=== PATIENT | female | born 1990 | race Caucasian/White ===

== ENCOUNTER 2016-09-16 00:14 | Emergency (ER) | payer BC ==
[~2016-09-16] VITALS: Ht 165.1 cm; Wt 125.5 kg
[~2016-09-16 00:14] MED LIST: DIPROSONE 0.05%15 GM TP; FLAGYL500 MG PO; KEFLEX500 MG PO; NAPROSYN500 MG PO; ZOFRAN ODT4 MG PO
[2016-09-16 01:05] LABS: ADD MIUA? YES; BILIRUBIN NEGATIVE; BLOOD MODERATE; COLOR YELLOW ((YELLOW)); GLUCOSE (STRIP) NEGATIVE; KETONES NEGATIVE; LEUKOCYTES LARGE; NITRITE POSITIVE; PROTEIN (STRIP) 30; SPECIFIC GRAVITY 1.008 (1.000-1.030); UROBILINOGEN 0.2 MG/DL (0.2-1.0)
[2016-09-16 01:07] LABS: INFLUENZA A VIRAL ANTIGEN NEGATIVE; INFLUENZA B VIRAL ANTIGEN NEGATIVE
[2016-09-16 01:08] LABS: HEMATOCRIT 40.8 % (36.0-46.0); MCH 31.4 PG (29.0-34.0); MCHC 33.6 G/DL (30.0-36.0); MCV 93.6 FL (83-99); MEAN PLAT.VOLUME 8.5 uM^3 (9.5-12.4); PLATELET COUNT 443 K/uL (156-360); RBC DIS.WIDTH-CV 11.3 % (11.8-14.6); RBC DIS.WIDTH-SD 38.9 % (39-53); RED BLOOD COUNT 4.36 M/uL (3.80-5.20); WHITE BLOOD COUNT 13.6 K/uL (4.1-10.2)
[2016-09-16 01:17] LABS: CHLORIDE 103 mEq/L (99-109); POTASSIUM 3.5 mEq/L (3.7-5.4); SODIUM 137 mEq/L (136-147)
[2016-09-16 01:19] LABS: GLUCOSE 104 mg/dL (70-99)
[2016-09-16 01:20] LABS: BACTERIA RARE /HPF; EPITHELIAL CELLS RARE /HPF; MUCUS TRACE /LPF; RED BLOOD CELLS 30-40 /HPF (0-5); UCUL ADDED? YES; WHITE BLOOD CELLS TNTC /HPF (0-5)
[2016-09-16 01:21] LABS: ANION GAP 13 MEQ/L (2-14); TOTAL BILIRUBIN 0.5 mg/dL (0.0-1.0)
[2016-09-16 01:23] LABS: ALKALINE PHOSPHATASE 93 IU/L (3-129); GFR ESTIMATE (CALCULATED) > 59 mL/min/
[2016-09-16 01:24] LABS: UREA NITROGEN (BUN) 10 mg/dL (9-23)
[2016-09-16 01:32] LABS: QUANTITATIVE HCG 17.4 MIU/ML
[2016-09-16] MEDS ORDERED: KEFLEX500 MG PO (03:07)
[2016-09-16] MEDS ORDERED: MOTRIN800 MG PO (03:07)
[2016-09-16] MEDS ORDERED: PYRIDIUM200 MG PO (03:17)
[2016-09-16 03:42] VITALS: BP 140/88
[2016-09-19] MEDS ORDERED: SENOKOT,SENN1 TABLET PO (21:03)
== END 2016-09-16 03:43 | disposition home or self-care (01) ==
LOC: EME 00:14 → EXP 00:14
DX: O86.20 Urinary tract infection following delivery, unspecified (principal); O86.4 Pyrexia of unknown origin following delivery; G80.9 Cerebral palsy, unspecified
CPT/HCPCS: 80053; 81003; 83605; 84702; 85027; 87040; 87077; 87086; 87186; 87502; 87801; 99281; 99284; J0696; J1885; J7030; J7050

== ENCOUNTER 2016-09-18 01:00 | Emergency (ER) | payer BC ==
[~2016-09-18] VITALS: Ht 165.1 cm; Wt 122.2 kg
[~2016-09-18 01:00] MED LIST changes: +MOTRIN800 MG PO; +PYRIDIUM200 MG PO
[2016-09-18 02:43] LABS: EOSINOPHIL (%) 2.8 % (0-5); EOSINOPHIL COUNT 0.3 K/uL (0-0.3); HEMATOCRIT 33.4 % (36.0-46.0); IMMATURE GRANULOCYTE (%) 1.4 % (0.0-0.7); IMMATURE GRANULOCYTE COUNT 0.1 K/uL; INSTRUMENT ABS NEUTROPHIL CT 6.1 K/uL; LYMPHOCYTE COUNT 2.1 K/uL (1.0-2.8); MCH 31.4 PG (29.0-34.0); MCHC 33.8 G/DL (30.0-36.0); MCV 92.8 FL (83-99); MEAN PLAT.VOLUME 8.8 uM^3 (9.5-12.4); MONOCYTE (%) 9.5 % (3-12); MONOCYTE COUNT 0.9 K/uL (0-0.8); NEUTROPHIL (%) 63.8 % (45-76); NEUTROPHIL COUNT 6.1 K/uL (1.8-6.4); PLATELET COUNT 381 K/uL (156-360); RBC DIS.WIDTH-CV 11.2 % (11.8-14.6); RBC DIS.WIDTH-SD 38.3 % (39-53); WHITE BLOOD COUNT 9.5 K/uL (4.1-10.2)
[2016-09-18 02:48] LABS: CHLORIDE 109 mEq/L (99-109); POTASSIUM 3.5 mEq/L (3.7-5.4); SODIUM 140 mEq/L (136-147)
[2016-09-18 02:50] LABS: GLUCOSE 105 mg/dL (70-99)
[2016-09-18 02:52] LABS: ANION GAP 11 MEQ/L (2-14)
[2016-09-18 02:54] LABS: ALKALINE PHOSPHATASE 72 IU/L (3-129); GFR ESTIMATE (CALCULATED) > 59 mL/min/
[2016-09-18 02:55] LABS: TOTAL BILIRUBIN 0.3 mg/dL (0.0-1.0); UREA NITROGEN (BUN) 7 mg/dL (9-23)
[2016-09-18 03:18] LABS: ADD MIUA? YES; BILIRUBIN NEGATIVE; BLOOD LARGE; COLOR AMBER ((YELLOW)); GLUCOSE (STRIP) NEGATIVE; KETONES NEGATIVE; LEUKOCYTES LARGE; NITRITE NEGATIVE; PROTEIN (STRIP) NEGATIVE; SPECIFIC GRAVITY 1.009 (1.000-1.030); UROBILINOGEN 0.2 MG/DL (0.2-1.0)
[2016-09-18 03:33] LABS: BACTERIA RARE /HPF; EPITHELIAL CELLS RARE /HPF; MUCUS TRACE /LPF; RED BLOOD CELLS 40-50 /HPF (0-5); UCUL ADDED? YES; WHITE BLOOD CELLS TNTC /HPF (0-5)
[2016-09-18 04:49] VITALS: BP 134/84
[2016-09-19] MEDS ORDERED: SENOKOT,SENN1 TABLET PO (21:03)
== END 2016-09-18 05:19 | disposition home or self-care (01) ==
LOC: EME 01:00
PROVIDERS: Emergency Medicine
DX: O86.21 Infection of kidney following delivery (principal); N12 Tubulo-interstitial nephritis, not specified as acute or chronic; R78.81 Bacteremia; B96.89 Other specified bacterial agents as the cause of diseases classified elsewhere
CPT/HCPCS: 80053; 81003; 83605; 85025; 87040; 87086; 99281; 99284; J0696; J7050

== ENCOUNTER 2017-03-06 20:03 | Emergency (ER) | payer BC ==
[~2017-03-06] VITALS: Ht 162.6 cm; Wt 128.4 kg
[~2017-03-06 20:03] MED LIST changes: +SENOKOT,SENN1 TABLET PO
[2017-03-06 21:14] LABS: ADD MIUA? YES; BILIRUBIN NEGATIVE; BLOOD NEGATIVE; COLOR YELLOW ((YELLOW)); GLUCOSE (STRIP) NEGATIVE; KETONES NEGATIVE; LEUKOCYTES TRACE; NITRITE NEGATIVE; PROTEIN (STRIP) NEGATIVE; SPECIFIC GRAVITY 1.018 (1.000-1.030); UROBILINOGEN 0.2 MG/DL (0.2-1.0)
[2017-03-06 21:20] LABS: BACTERIA RARE /HPF; EPITHELIAL CELLS RARE /HPF; MUCUS TRACE /LPF; RED BLOOD CELLS 0-5 /HPF (0-5); UCUL ADDED? NO; WHITE BLOOD CELLS 0-5 /HPF (0-5)
[2017-03-06 21:26] LABS: HEMATOCRIT 42.9 % (36.0-46.0); MCH 28.9 PG (29.0-34.0); MCHC 33.3 G/DL (30.0-36.0); MCV 86.8 FL (83-99); MEAN PLAT.VOLUME 9.5 uM^3 (9.5-12.4); PLATELET COUNT 333 K/uL (156-360); RBC DIS.WIDTH-SD 38.4 % (39-53); RED BLOOD COUNT 4.94 M/uL (3.80-5.20)
[2017-03-06 21:38] LABS: CHLORIDE 108 mEq/L (99-109)
[2017-03-06 21:39] LABS: POTASSIUM 3.5 mEq/L (3.7-5.4); SODIUM 140 mEq/L (136-147)
[2017-03-06 21:41] LABS: GLUCOSE 95 mg/dL (70-99)
[2017-03-06 21:42] LABS: ANION GAP 8 MEQ/L (2-14)
[2017-03-06 21:43] LABS: TOTAL BILIRUBIN 0.2 mg/dL (0.0-1.0)
[2017-03-06 21:44] LABS: ALKALINE PHOSPHATASE 89 IU/L (3-129); GFR ESTIMATE (CALCULATED) > 59 mL/min/
[2017-03-06 21:46] LABS: UREA NITROGEN (BUN) 7 mg/dL (9-23)
[2017-03-06 21:54] LABS: QUANTITATIVE HCG < 4.0 MIU/ML
[2017-03-06 23:15] VITALS: BP 142/83
== END 2017-03-06 23:17 | disposition home or self-care (01) ==
LOC: EME 20:03
DX: N93.9 Abnormal uterine and vaginal bleeding, unspecified (principal); R10.9 Unspecified abdominal pain; G80.9 Cerebral palsy, unspecified
CPT/HCPCS: 80053; 81003; 84702; 85027; 99281; 99284